=== PATIENT | male | born 1945 | race Caucasian/White ===

== ENCOUNTER 2019-01-31 23:59 | Emergency (ER) | payer OTHER ==
[~2019-01-31] VITALS: Ht 170.2 cm; Wt 68.0 kg
[2019-02-01 00:02] VITALS: BP 140/82
[2019-02-01] MEDS ORDERED: LISI-167 PO (00:06)
--- NOTE | 2019-02-01 00:13 | NUR ---
PT TO ROOM PLACED IN A GOWN AND AWAITING ERP AND ORDERS.
[2019-02-01] MEDS ORDERED: KETOROLAC 30 MG/1 ML IM ONE (00:30)
[2019-02-01] MEDS ORDERED: KETOROLAC 30 MG/1 ML ONE (00:42)
--- NOTE | 2019-02-01 00:45 | NUR ---
PT MEDICATED ORDERED AND AWAITING ERP RECHECK
[2019-02-01] MEDS ORDERED: COLCHICINE 0.6 MG CAPSULE ONE (01:55)
[2019-02-01] MEDS ORDERED: COLCHICINE 0.6 MG CAPSULE PO ONE (02:00)
== END 2019-02-01 02:00 | disposition home or self-care (01) ==
LOC: ED 02-01 00:18
DX: M10.072 Idiopathic gout, left ankle and foot (principal); I10 Essential (primary) hypertension
CPT/HCPCS: 73630; 96372; 99283; J1885